=== PATIENT | female | born 1955 | race Caucasian/White ===

== ENCOUNTER 2023-10-02 19:51 | Emergency (ER) | payer MEDICARE, MEDICAID ==
[~2023-10-02] VITALS: Ht 157.5 cm; Wt 62.0 kg
[~2023-10-02 19:51] MED LIST: METF-414 PO
[2023-10-02 20:00] VITALS: BP 174/66; RESP 18; TEMP 98.2; O2SAT 98
[2023-10-02 20:06] VITALS: PULSE 72
[2023-10-02] MEDS ORDERED: LIDOCAINE HCL/PF 1% 10 MG/ML 5ML VIAL INFIL ONE (21:00)
[2023-10-02] MEDS ORDERED: TETANUS, DIPHTHERIA, PERTUSSIS VAC/PF 0.5ML (>10YR OLD) IM ONE (21:00)
[2023-10-03] MEDS ORDERED: TETANUS, DIPHTHERIA, PERTUSSIS VAC/PF 0.5ML (>10YR OLD) IM ONE
[2023-10-03] MEDS ORDERED: TRANEXAMIC ACID 1,000 MG/10 ML TP ONE
== END 2023-10-03 00:39 | disposition home or self-care (01) ==
LOC: ER 19:51
DX: S64.31XA Injury of digital nerve of right thumb, initial encounter (principal); E11.9 Type 2 diabetes mellitus without complications; E78.00 Pure hypercholesterolemia, unspecified; W26.8XXA Contact with other sharp object(s), not elsewhere classified, initial encounter; Y93.89 Activity, other specified; Y92.89 Other specified places as the place of occurrence of the external cause; Y99.8 Other external cause status
CPT/HCPCS: 90471; 90715; 99283

== ENCOUNTER 2024-10-24 13:33 | Emergency (ER) | payer MEDICAID, MEDICARE ==
[~2024-10-24] VITALS: Ht 157.5 cm; Wt 60.0 kg
[2024-10-24 13:35] VITALS: O2SAT 99
[2024-10-24] MEDS ORDERED: ONDANSETRON HCL 4MG/2ML INJ IV STA (13:53)
[2024-10-24] MEDS: PANTOPRAZOLE SODIUM 40 MG/VIAL IV STA (14:45)
[2024-10-24] MEDS: SODIUM CHLORIDE 0.9% 1,000 ML IV ONE (14:45)
[2024-10-24] MEDS: ONDANSETRON HCL 4MG/2ML INJ IV NR (14:56)
[2024-10-24 15:37] LABS: HEMATOCRIT. 44.8 % (36.0-48.0); HEMOGLOBIN. 15.4 g/dL (12.0-16.0); MEAN CORPUSCULAR HGB CONC 34.5 g/dL (31.0-37.0); MEAN PLATELET VOLUME 8.3 fl (7.4-10.4); PLATELET 263 x1000/uL (130-400); RED BLOOD CELL COUNT 5.15 mill/uL (4.2-5.4); RED CELL DISTRIBUTION WIDTH 13.5 % (11.6-14.6); WHITE BLOOD COUNT 16.5 x1000/uL (4.5-11.0)
[2024-10-24 15:41] LABS: DIFFERENTIAL COMMENT 1
[2024-10-24 15:46] LABS: PROTHROMBIN TIME 11.2 sec (9.6-11.0)
[2024-10-24 15:53] LABS: CHLORIDE 104 mEq/L (98-107); POTASSIUM 3.3 mEq/L (3.5-5.1); SODIUM 140 mEq/L (136-145)
[2024-10-24 15:54] LABS: CALCIUM 10.3 mg/dL (8.7-10.4); CARBON DIOXIDE 25 mEq/L (21-32)
[2024-10-24 15:59] LABS: GLUCOSE 175 mg/dL (70-105); UREA NITROGEN BLOOD 16 mg/dL (9-23)
[2024-10-24 16:01] LABS: ALANINE AMINOTRANSFERASE 18 IU/L (10-49); ALBUMIN 5.1 g/dL (3.2-4.8); ASPARTATE AMINOTRANSFERASE 20 IU/L (<34); BILIRUBIN DIRECT 0.2 mg/dL (<=3.0)
[2024-10-24 16:02] LABS: BILIRUBIN TOTAL 0.7 mg/dL (0.1-1.0); PROTEIN TOTAL 8.7 g/dL (6.0-8.3)
[2024-10-24] MEDS: POTASSIUM CHLORIDE 20MEQ TABLET SR PO ONE (16:26)
[2024-10-24 17:04] LABS: PLATELET ESTIMATE NORMAL
[2024-10-24] MEDS: LOPERAMIDE HCL 2MG CAPSULE PO ONE (17:08)
[2024-10-24] MEDS: MORPHINE SULFATE 4 MG/ML INJ (FOR IV/IM USE) IV ONE (17:08)
[2024-10-24] MEDS: AZITHROMYCIN 500MG/250ML 250 ML IV STA (17:17)
[2024-10-24] MEDS: CEFTRIAXONE 1GM/50ML 50 ML IV ONE (19:03)
[2024-10-24] MEDS ORDERED: FAMO40TA70 MT (19:40)
[2024-10-24] MEDS ORDERED: LACT1CAP78 MT (19:40)
[2024-10-24] MEDS ORDERED: AZIT250T12 MT (19:40)
[2024-10-24 20:45] VITALS: BP 101/49; PULSE 67; RESP 13; TEMP 37.00296; O2SAT 97
== END 2024-10-24 20:45 | disposition home or self-care (01) ==
LOC: ER 13:33
DX: R11.2 Nausea with vomiting, unspecified (principal); K52.9 Noninfective gastroenteritis and colitis, unspecified; E78.00 Pure hypercholesterolemia, unspecified
CPT/HCPCS: 99285; 74176; 96365; 96375; 96366; 80076; 80048; 83690; 85025; 85610; 36415; 93005; 96368; J0456; J0696; J2405; J2470; J2270; J7030